=== PATIENT | female | born 1980 | race Caucasian/White ===

== ENCOUNTER → 2017-11-26 17:39 | Outpatient (REF) | payer MEDICAID, SELFPAY ==
[2017-11-26 19:21] LABS: Amphetamine/Metha Screen,Urine Negative ng/mL (<1000); Barbiturates Screen,Urine Negative ng/mL (<200); Benzodiazepines Screen,Urine Positive ng/mL (200); Cannabinoid Screen,Urine Negative ng/mL (<50); Cocaine Screen,Urine Negative ng/g (<300); Methadone Screen,Urine Negative ng/mL (<300); Opiate Screen,Urine Negative ng/mL (<300); Phencyclidine Screen,Urine Negative ng/mL (<25)
== END ==
LOC: LAB 17:39
PROVIDERS: Visit Provider Nurse Practitioner Family
DX: Z79.899 Other long term (current) drug therapy (principal)
CPT/HCPCS: 80305

== ENCOUNTER → 2020-11-23 13:57 | Outpatient (CLI) | payer MEDICAID, SELFPAY ==
--- NOTE | 2020-11-23 14:00 | XR_ITS ---
PROCEDURE: XR LUMBAR SPINE MIN 4V CLINICAL INDICATION: Low back pain COMPARISON: No exams were available for comparison FINDINGS: No fracture or dislocation. No lytic or blastic change. There is normal mineralization. There is mild degenerative disc disease at L2-L3. There is a mild amount of retained colonic feces. Other findings:None. IMPRESSION: Mild degenerative disc disease L2-L3 Dictated by: Sridhar Langley MD 11/23/2020 15:11 Sridhar Langley MD in [facility] 11/23/2020 15:11
== END ==
PROVIDERS: PCP Nurse Practitioner Family; Visit Provider Nurse Practitioner Family
DX: M54.42 Lumbago with sciatica, left side (principal); M54.41 Lumbago with sciatica, right side; G89.29 Other chronic pain
CPT/HCPCS: 72110

== ENCOUNTER → 2022-05-07 14:37 | Outpatient (CLI) | payer MEDICAID, SELFPAY ==
[2022-05-07 14:19] LABS: Opiate Screen,Urine Negative ng/ml (<300)
[2022-05-07 14:20] LABS: Phencyclidine Screen,Urine Negative ng/ml (<25)
[2022-05-07 14:37] LABS: Amphetamine/Metha Screen,Urine Negative ng/ml (<1000)
[2022-05-07 14:38] LABS: Barbiturates Screen,Urine Negative ng/ml (<200); Benzodiazepines Screen,Urine Negative ng/ml (<200)
[2022-05-07 14:39] LABS: Cannabinoid Screen,Urine Negative ng/ml (<50)
[2022-05-07 14:40] LABS: Cocaine Screen,Urine Negative ng/ml (<300); Methadone Screen,Urine Negative ng/ml (<300)
== END ==
PROVIDERS: PCP Emergency Medicine; Visit Provider Emergency Medicine
DX: M54.9 Dorsalgia, unspecified (principal); G89.29 Other chronic pain
CPT/HCPCS: 80305

== ENCOUNTER → 2022-05-20 17:21 | Outpatient (CLI) | payer MEDICAID, SELFPAY ==
[2022-05-20 14:45] LABS: Coronavirus 19, PCR Not Detected (NotDetected); Influenza A, PCR Not Detected (NotDetected); Influenza B, PCR Not Detected (NotDetected)
[2022-05-20 15:16] LABS: Barbiturates Screen,Urine Negative ng/ml (<200)
[2022-05-20 15:17] LABS: Amphetamine/Metha Screen,Urine Negative ng/ml (<1000)
[2022-05-20 15:19] LABS: Benzodiazepines Screen,Urine Positive ng/ml (<200)
[2022-05-20 15:20] LABS: Cannabinoid Screen,Urine Negative ng/ml (<50)
[2022-05-20 15:21] LABS: Cocaine Screen,Urine Negative ng/ml (<300); Methadone Screen,Urine Negative ng/ml (<300)
[2022-05-20 15:22] LABS: Opiate Screen,Urine Negative ng/ml (<300); Phencyclidine Screen,Urine Negative ng/ml (<25)
== END ==
PROVIDERS: PCP Emergency Medicine; Visit Provider Emergency Medicine
DX: Z20.822 Contact with and (suspected) exposure to COVID-19 (principal); R68.89 Other general symptoms and signs; Z79.899 Other long term (current) drug therapy
CPT/HCPCS: 80305; C9803; U0003; U0005

== ENCOUNTER → 2022-06-17 15:14 | Outpatient (CLI) | payer MEDICAID, SELFPAY ==
[2022-06-17 15:43] LABS: Barbiturates Screen,Urine Negative ng/ml (<200); Benzodiazepines Screen,Urine Positive ng/ml (<200)
[2022-06-17 15:44] LABS: Amphetamine/Metha Screen,Urine Negative ng/ml (<1000)
[2022-06-17 15:45] LABS: Cannabinoid Screen,Urine Negative ng/ml (<50); Cocaine Screen,Urine Negative ng/ml (<300)
[2022-06-17 15:46] LABS: Methadone Screen,Urine Negative ng/ml (<300)
[2022-06-17 15:52] LABS: Opiate Screen,Urine Negative ng/ml (<300); Phencyclidine Screen,Urine Negative ng/ml (<25)
== END ==
PROVIDERS: PCP Emergency Medicine; Visit Provider Emergency Medicine
DX: Z79.899 Other long term (current) drug therapy (principal)
CPT/HCPCS: 80305

== ENCOUNTER → 2022-07-23 13:10 | Outpatient (CLI) | payer MEDICAID, SELFPAY ==
[2022-07-23 15:50] LABS: Amphetamine/Metha Screen,Urine Negative ng/ml (<1000)
[2022-07-23 15:51] LABS: Barbiturates Screen,Urine Negative ng/ml (<200)
[2022-07-23 15:53] LABS: Benzodiazepines Screen,Urine Negative ng/ml (<200); Cannabinoid Screen,Urine Negative ng/ml (<50)
[2022-07-23 15:54] LABS: Cocaine Screen,Urine Negative ng/ml (<300); Methadone Screen,Urine Negative ng/ml (<300)
[2022-07-23 15:55] LABS: Opiate Screen,Urine Negative ng/ml (<300)
[2022-07-23 15:56] LABS: Phencyclidine Screen,Urine Negative ng/ml (<25)
== END ==
PROVIDERS: PCP Emergency Medicine; Visit Provider Emergency Medicine
DX: Z79.899 Other long term (current) drug therapy (principal)
CPT/HCPCS: 80305